=== PATIENT | male | born 1995 | race Caucasian/White ===

== ENCOUNTER 2018-01-16 01:38 | Emergency (ER) | payer MEDICAID, OTHER ==
[~2018-01-16] VITALS: Ht 172.7 cm; Wt 86.0 kg
[~2018-01-16 01:38] MED LIST: AMLO10TA80 PO; MELO-106 PO; METH500T6 PO; OMEP20CA10 PO; TRAM50TA3 PO
[2018-01-16 03:00] VITALS: BP 145/91
[2018-01-16] MEDS ORDERED: IBUPROFEN 600MG TABLET PO ONE (03:00)
== END 2018-01-16 03:19 | disposition home or self-care (01) ==
LOC: ER 01:38
DX: M79.1 Myalgia (principal); M54.5 Low back pain; R51 Headache; I10 Essential (primary) hypertension; Z87.828 Personal history of other (healed) physical injury and trauma; V43.52XA Car driver injured in collision with other type car in traffic accident, initial encounter; Y93.89 Activity, other specified; Y92.488 Other paved roadways as the place of occurrence of the external cause
CPT/HCPCS: 99283